=== PATIENT | female | born 1945 | race Caucasian/White ===

== ENCOUNTER 2017-10-16 00:46 | Observation (INO) | payer MEDICARE ==
[2017-10-15 13:36] LABS: INR 0.95
[~2017-10-16] VITALS: Ht 160 cm; Wt 55.3 kg
[2017-10-16] VITALS (16 sets, daily range): BP systolic 85–125; BP diastolic 42–66
[~2017-10-16 00:46] MED LIST: ASPI-1471 PO; ATOR10TA24 PO; FEXO1TAB63 PO; FLUT1DIS27 IH; NAPR-1043 PO; SERT-173 PO
--- NOTE | 2017-10-16 04:26 | LEVENE H&P ---
DATE OF ADMISSION: October 16, 2017 IDENTIFICATION/CHIEF COMPLAINT Elena is a 72-year-old woman with a chief complaint of right knee pain. HISTORY OF PRESENT ILLNESS Patient has a longstanding history of knee arthritis, progressively painful and debilitating, refractory to conservative care. Surgery is indicated to relieve symptoms after failure of nonoperative measures. PAST MEDICAL HISTORY Notable for reactive airway disease managed with inhalers. ALLERGIES No known drug allergies. CURRENT MEDICATIONS 1. Zoloft 100 mg p.o. daily. 2. ProAir inhaler q.a.m. 3. Advair inhaler once a day. 4. Aspiring 81 mg p.o. daily. 5. Vitamins. PAST SURGICAL HISTORY Notable for bilateral cataract surgery. FAMILY HISTORY Noncontributory. SOCIAL HISTORY Negative for tobacco use. She drinks alcohol socially about once a week, denies abuse. REVIEW OF SYSTEMS Negative. PHYSICAL EXAMINATION GENERAL: This is a well-developed, well-nourished female who appears stated age. HEENT: Normocephalic, atraumatic. NECK: Supple. LUNGS: Clear. HEART: Regular. ABDOMEN: Soft. ORTHOPEDIC EXAMINATION: Right knee is stiff at end range of motion. She is grossly stable. Extensor function is intact. Skin is in good condition. RADIOGRAPHIC DATA Radiographs demonstrate end-stage knee arthritis. ASSESSMENT Right knee end-stage degenerative joint disease, progressively painful and debilitating, refractory to conservative care. PLAN Per patient request, we are going to proceed with total knee arthroplasty. The nature of the procedure, risks, benefits, the anticipated rehabilitative course were reviewed. The risks of procedure include but are not limited to , major medical or anesthetic complication, infection, neurovascular injury, blood transfusion, stiffness, scarring, fracture, tendon rupture, instability, implant loosening, migration or failure, persistent or recurrent pain, need for additional surgery and other unforeseen. She understands and wishes to proceed. A signed permit is placed in the chart. No guarantees are given or implied. KAVON
[2017-10-16] MEDS ORDERED: PROPOFOL EMUL(*) 10MG/ML 20 ML 20 ML ONE (06:27)
[2017-10-16] MEDS ORDERED: ONDANSETRON 4 MG/2 ML VIAL ONE (06:27)
[2017-10-16] MEDS ORDERED: LIDOCAINE MPF 1% 5 ML VIAL ONE (06:27)
[2017-10-16] MEDS ORDERED: DEXAMETHASONE SOD 4 MG/ML VIAL ONE (06:27)
[2017-10-16] MEDS ORDERED: fentaNYL CITR 100 MCG/2 ML AMP ONE (06:28)
[2017-10-16] MEDS ORDERED: PREGABALIN 75 MG CAPSULE PO ONE (07:45)
[2017-10-16] MEDS ORDERED: ACETAMINOPHEN 500 MG TAB PO ONE (07:45)
[2017-10-16] MEDS ORDERED: ceFAZolin(*) 1 GM VIAL 1 GM in NS(*) 0.9% 100 ML ADDVANT BAG 100 ML IVPB ONE (07:45)
[2017-10-16] MEDS ORDERED: NORMOSOL R SOLN(*) 1000 ML BAG 1,000 ML IV PRN ×2 (07:45→09:25)
[2017-10-16] MEDS ORDERED: FAMOTIDINE 20 MG TAB PO ONE (07:45)
[2017-10-16] MEDS ORDERED: CELECOXIB 200 MG CAP PO ONE (07:45)
[2017-10-16] MEDS ORDERED: LIDOCAINE/SOD BICARB 8.4% SYR ID ONE (07:45)
[2017-10-16] MEDS ORDERED: MIDAZOLAM 2 MG/2 ML VIAL IVP PRN (07:45)
[2017-10-16] MEDS ORDERED: cloNIDine EPIDUR INJ 100MCG/ML 40 MCG, ROPIVACAINE 0.5% 20 ML VIAL 25 ML, EPINEPHrine H... INJ ONE (07:45)
[2017-10-16] MEDS ORDERED: TRANEXAMIC AC 1000 MG/10ML SDV 1,000 MG in DEXTROSE 5% 50 ML BAG 50 ML IV ONE (07:45)
[2017-10-16] MEDS ORDERED: NS 0.9% IRRIGATION 1000ML PLCT IR ONE (07:58)
[2017-10-16] MEDS ORDERED: LACTATED RINGER 3000 ML BAG IR ONE (07:58)
[2017-10-16] MEDS ORDERED: diphenhydrAMINE 50 MG/ML VIAL IVP PRN (09:25)
[2017-10-16] MEDS ORDERED: DIAZEPAM 5 MG TAB PO PRN (09:25)
[2017-10-16] MEDS ORDERED: diphenhydrAMINE 25 MG CAP PO PRN (09:25)
[2017-10-16] MEDS ORDERED: MAGNESIUM HYDROXIDE* 30ML UDCP PO PRN (09:25)
[2017-10-16] MEDS ORDERED: BENZOCAINE/MENTHOL 1 EACH LOZG PO PRN (09:25)
[2017-10-16] MEDS ORDERED: BISACODYL 10 MG SUPP PR PRN (09:25)
[2017-10-16] MEDS ORDERED: FLUSH 10 ML SYR IVP PRN (09:25)
[2017-10-16] MEDS ORDERED: ZOLPIDEM TARTRATE 5 MG TAB PO PRN (09:25)
[2017-10-16] MEDS ORDERED: ACETAMINOPHEN 325 MG TAB PO PRN (09:25)
[2017-10-16] MEDS ORDERED: PROMETHAZINE 25 MG/ML 1 ML AMP IVP PRN (09:25)
--- NOTE | 2017-10-16 09:51 | LEVENE TKA ---
EVENT DATE: October 16, 2017 SURGEON: Steve Coley MD ANESTHESIA: General plus spinal. SLACKLINE OPERATOR: Jacob Duarte PA-C PREOPERATIVE DIAGNOSIS Right knee degenerative joint disease (DJD). POSTOPERATIVE DIAGNOSIS Right knee degenerative joint disease (DJD). PROCEDURE PERFORMED Right total knee arthroplasty. ESTIMATED BLOOD LOSS Minimal. DRAINS None. SPECIMENS None. COMPLICATIONS None. TOURNIQUET TIME 39 minutes. IMPLANTS USED Nicol Triathlon knee system, a 4 right PS femur, a 4 standard tibial baseplate , a 33] mm universal symmetric polyethylene patella button and 11 mm PS tibial tray liner polyethylene x3. INDICATIONS The patient is 72-year-old woman with end-stage arthritis, intractable pain and disability refractory to conservative care. Surgery is indicated to relieve symptoms after failure of nonoperative measures. DESCRIPTION OF PROCEDURE The patient was taken to the operating room and placed supine on the operating table. A spinal block was administered by the anesthesiologist. General anesthesia was induced. Antibiotic and TXA were administered IV. The right lower extremity was prepped and draped in the usual sterile fashion for orthopedic surgery. The limb was exsanguinated with an Esmarch bandage. The tourniquet was inflated to 250 mmHg. A midline longitudinal incision was made and carried down through the skin and subcutaneous tissue to the extensor mechanism. A full-thickness flap was developed far enough medially to allow a medial parapatellar arthrotomy to be performed. The patella was everted. The knee was brought into a flexed position. The fat pad, anterior horns of the menisci and cruciate ligaments were debrided. A subperiosteal capsular release was performed circumferentially 1 cm around the upper portion of the plateau. A step drill was used to enter the distal femur. A 10-inch long alignment guide was used to engage the isthmus. Distal cut set for 6 degrees of valgus over the anatomic axis. A 10 mm resection block was pinned and cut was made with an oscillating saw. The AP sizing guide was applied to the distal femoral cut. Size 4 was optimal without risk of notching. 3 degrees of external rotation relative to the posterior condyle was dialed in. The four-in-one cutting block was applied. Anterior, posterior, posterior chamfer and anterior chamfer cuts were made respectively. A PS block was applied and centered mediolateral and the bone was resected for the box. The trial femur had nice [id number] fit. Attention was turned to tibial preparation. The extramedullary guide was applied and positioned for varus, valgus, posterior slope and rotation. This is set to resect 2 mm from the deficient lateral tibial plateau and set down a couple of millimeters to ensure an adequate cut. The block was pinned into position, extramedullary check was made and the cut was made with an oscillating saw. After osteophyte removal and removal of posterior recess bone gaps were balanced and symmetric with no further release required. The size 4 tibial baseplate provided optimal coverage without soft tissue overhang. This was inserted along with a trial liner and trial femur and the knee was brought to extension. The patella was taken from a starting thickness of 24 to a residual of 15 with a patellar clamp and an oscillating saw. A size 33 provided optimal bony coverage without soft tissue overhang. The lug holes were drilled. The patella tracts nicely with a no-touch technique. Final tibial preparation consisted of ensuring appropriate rotational and translational position of the tibial component. The Boss was reamed and the fin was punched. All bony surfaces were lavaged. A mix of polymethylmethacrylate was made and the components were cemented in a single stage. After the cement was fully polymerized, the tourniquet was deflated and hemostasis was assured. The wounds were copiously lavaged to remove all loose debris. The 11 PS tibial tray liner fills up the gap ideally and allows the knee to drop to full extension without hyperextension, providing optimal soft tissue tension stability. The tray was lavaged and dried and the actual liner was locked into the baseplate. The joint was reduced and the arthrotomy was closed in flexion with #2 Ethibond, subcutaneous tissue with 3-0 Vicryl and the skin with surgical cody. Xeroform was applied followed by a dry, sterile dressing and a compression wrap. The patient was awakened from the anesthesia and taken to the recovery room in stable condition, having tolerated the procedure well. Plan for postoperative care is standard TK protocol. KAVON
--- NOTE | 2017-10-16 10:42 | RADIOLOGY IMAGING REPORT ---
FACILITY: [facility] [place] PATIENT NAME: Elena Hernandez : 1945 MR: [id number] V: [id number] EXAM DATE: ORDERING PHYSICIAN: KIMBERLY SOLOMON TECHNOLOGIST: Location: [facility] Patient: Elena Hernandez : 1945 Visit/Account:[id number] Date of Sevice: 10/16/2017 Exam type: KNEE LIMITED RIGHT History: S/P TOTAL KNEE ARTHROPLASTY CHECK PLACEMENT Comparison: None. Findings: A single AP view only of the right knee was submitted demonstrating a right knee arthroplasty which a ppears in good anatomic alignment on this AP view. Soft tissue gas and skin cody project over the knee IMPRESSION: 1. As above Report Dictated By: Gladys Mejia MD at 10/16/2017 10:37 AM Report E-Signed By: Gladys Mejia MD at 10/16/2017 10:38 AM WSN:[id number]
--- NOTE | 2017-10-16 10:52 | Hospitalist Consultation ---
History of Present Illness Requesting Physician Dr. Coley Reason for Consult medical management Chief Complaint s/p right total knee replacement History of Present Illness She was admitted s/p right total knee replacement. It is reported the surgery went well and without complication. History Problems: (1) Depression Status: Chronic (2) Hyperlipidemia Status: Chronic (3) Asthma Status: Chronic Home Meds Reported Medications Fexofenadine Hcl/Pseudoephedr (BEN-D 24 HOUR TABLET) 1 Each Tabsr, 1 TAB PO QDAY 10/09/17 Atorvastatin Calcium (LIPITOR) 10 Mg Tablet, 1 TAB PO HS, TAB 10/09/17 Naproxen Sodium (ALEVE) 220 Mg Tablet, 220 MG PO TID Y for PAIN, TAB 10/09/17 Aspirin (ASPIR 81) 81 Mg Tablet.dr, 81 MG PO QDAY, TAB 10/09/17 Fluticasone/Salmeterol (ADVAIR 100-50 DISKUS) 1 Each Disk.w.dev, 2 PUFF IH BID 10/09/17 Sertraline Hcl (ZOLOFT) 100 Mg Tablet, 1 TAB PO QDAY, TAB 10/09/17 Allergies: Coded Allergies: No Known Drug Allergies (Unverified , 10/09/17) Patient History: FH: diabetes mellitus MOTHER, , Age:83 FHx: heart disease FATHER, , Age:80 Hx Smoking: Yes (SMOKED <1/2 PPD X 18 YRS. QUIT 1987.) When Quit Tobacco?: 1987 Caffeine Intake: Coffee, Tea Caffeine/Cups Per Day: 2 Hx Alcohol Use: Yes Hx Substance Use Disorder: No Social Drug Use: Never History of IV Drug Use: No Review of Systems All Systems Reviewed/Normal: Yes, Except as Noted Exam Vital Signs Vital Signs Date Time Temp Pulse Resp B/P (MAP) Pulse Ox O2 Delivery O2 Flow Rate FiO2 10/16/17 10:11 99 Nasal Cannula 1.0 10/16/17 10:11 97.6 69 16 125/58 (80) General Appearance: Alert, Awake, No Acute Distress, Afebrile Neuro: No Gross deficits Cardiovascular: Regular Rate and Rhythm Respiratory: No Respiratory Distress, Clear to Auscultation GI: Abd Soft and Non-Tender Psych: Alert & Oriented X3, Appropriate Mood & Affect Assessment and Plan Problems: (1) Status post total right knee replacement Status: Acute Assessment & Plan: Followed by Dr. Coley. She has no history of DVT or PE. She will be started on Aspirin 325mg daily for DVT prophylaxis. (2) Asthma Status: Chronic Assessment & Plan: She is on chronic treatment with Advair. She does not require oxygen at home. (3) Hyperlipidemia Status: Chronic Assessment & Plan: She is on chronic treatment with atorvastatin. (4) Depression Status: Chronic Assessment & Plan: She is on chronic treatment with sertraline. (5) Renal insufficiency Status: Acute Assessment & Plan: Creatinine prior to surgery was 1.57. We will recheck BMP in the morning. Venous Thromboembolism Antithrombotics Is Pt On Any Antithrombotics?: No Exam Sepsis Risk: No Definite Risk LEANN BRAUN AEROSPACE PHYSIOLOGICAL TECHNICIAN Oct 16, 2017 10:52
[2017-10-16] MEDS: APAP/HYDROCODONE 325/7.5 TAB PO PRN ×3 (11:10→20:57)
[2017-10-16] MEDS: ceFAZolin(*) 1 GM VIAL 1 GM in NS(*) 0.9% 100 ML ADDVANT BAG 100 ML IVPB SCH ×2 (14:45→23:24)
[2017-10-16] MEDS: SALMETEROL/FLUTIC 100/50 1 INH INH SCH (17:12)
[2017-10-16] MEDS: CELECOXIB 200 MG CAP PO SCH (17:18)
[2017-10-16] MEDS: ATORVASTATIN 10 MG TAB PO SCH (20:57)
[2017-10-17] VITALS (7 sets, daily range): BP systolic 90–104; BP diastolic 41–51; Ht 160 cm; Wt 55.3 kg
[2017-10-17] MEDS: APAP/HYDROCODONE 325/7.5 TAB PO PRN ×4 (03:10→17:43)
[2017-10-17] MEDS: SALMETEROL/FLUTIC 100/50 1 INH INH SCH ×2 (05:48→17:38)
[2017-10-17] MEDS: ceFAZolin(*) 1 GM VIAL 1 GM in NS(*) 0.9% 100 ML ADDVANT BAG 100 ML IVPB SCH (06:27)
[2017-10-17] MEDS ORDERED: NS(*) 0.9% 250 ML BAG 250 ML ONE (06:28)
[2017-10-17] MEDS: CELECOXIB 200 MG CAP PO SCH ×2 (08:10→16:22)
--- NOTE | 2017-10-17 09:13 | Hospitalist Progress Note ---
Subjective Progress Notes Subjective She had some episodes of confusion last night. This is now resolved. She has no complaints this morning. Patient Complains of: Cardiovascular: No: Chest Pain Respiratory: No: Shortness of Breath Physical Exam Vital Signs Date Time Temp Pulse Resp B/P (MAP) Pulse Ox O2 Delivery O2 Flow Rate FiO2 10/17/17 07:54 96 10/17/17 07:52 98.8 61 12 101/51 (68) Nasal Cannula 0.5 Intake and Output 10/18/17 06:59 Intake Total 110 ml Balance 110 ml IV Total 110 ml General Appearance: Alert, Awake, No Acute Distress, Afebrile Neuro: No Gross deficits Cardiovascular: Regular Rate and Rhythm Respiratory: No Respiratory Distress, Clear to Auscultation Psych: Alert & Oriented X3, Appropriate Mood & Affect Result Diagram: 10/17/17 0510 Assessment and Plan Problems: (1) Status post total right knee replacement Status: Acute Assessment & Plan: Followed by Dr. Coley. She has no history of DVT or PE. She will be started on Aspirin 325mg daily for DVT prophylaxis. (2) Asthma Status: Chronic Assessment & Plan: She is on chronic treatment with Advair. She does not require oxygen at home. (3) Hyperlipidemia Status: Chronic Assessment & Plan: She is on chronic treatment with atorvastatin. (4) Depression Status: Chronic Assessment & Plan: She is on chronic treatment with sertraline. (5) Renal insufficiency Status: Acute Assessment & Plan: Creatinine prior to surgery was 1.57. Creatinine 1.1. Exam Sepsis Risk: No Definite Risk LEANN BRAUNP Oct 17, 2017 09:12
[2017-10-17] MEDS: SERTRALINE HCL 50 MG TAB PO SCH (10:09)
[2017-10-17] MEDS: ASPIRIN 325 MG TAB PO SCH (10:09)
[2017-10-17] MEDS: FEXOFENADINE HCL 60 MG TAB PO SCH (10:09)
[2017-10-17] MEDS: ATORVASTATIN 10 MG TAB PO SCH (20:50)
[2017-10-18 00:19] VITALS: BP 106/53
[2017-10-18 02:49] VITALS: BP 121/60
[2017-10-18] MEDS: SALMETEROL/FLUTIC 100/50 1 INH INH SCH (05:50)
[2017-10-18] MEDS: APAP/HYDROCODONE 325/7.5 TAB PO PRN ×3 (06:04→15:29)
[2017-10-18 07:06] VITALS: BP 114/53
[2017-10-18] MEDS: FEXOFENADINE HCL 60 MG TAB PO SCH (08:35)
[2017-10-18] MEDS: ASPIRIN 325 MG TAB PO SCH (08:35)
[2017-10-18] MEDS: CELECOXIB 200 MG CAP PO SCH (08:35)
[2017-10-18] MEDS: SERTRALINE HCL 50 MG TAB PO SCH (08:36)
[2017-10-18] MEDS ORDERED: ASPI-757 PO (11:03)
--- NOTE | 2017-10-18 11:05 | Hospitalist Progress Note ---
Subjective Progress Notes Subjective She has no complaints this morning. She had no acute events overnight. Patient Complains of: Cardiovascular: No: Chest Pain Respiratory: No: Shortness of Breath Physical Exam Vital Signs Date Time Temp Pulse Resp B/P (MAP) Pulse Ox O2 Delivery O2 Flow Rate FiO2 10/18/17 07:06 90 10/18/17 07:06 98.5 71 20 114/53 (73) Nasal Cannula 0.5 Intake and Output 10/19/17 00:59 Intake Total 150 ml Balance 150 ml Intake Oral 150 ml # Voids 2 General Appearance: Alert, Awake, No Acute Distress, Afebrile Neuro: No Gross deficits Cardiovascular: Regular Rate and Rhythm Respiratory: No Respiratory Distress, Clear to Auscultation GI: Soft and Non-Tender Psych: Alert & Oriented X3, Appropriate Mood & Affect Result Diagram: 10/17/17 0510 Assessment and Plan Problems: (1) Status post total right knee replacement Status: Acute Assessment & Plan: Followed by Dr. Coley. She has no history of DVT or PE. She will be started on Aspirin 325mg daily for DVT prophylaxis. She plans to go home with home health. (2) Asthma Status: Chronic Assessment & Plan: She is on chronic treatment with Advair. She does not require oxygen at home. (3) Hyperlipidemia Status: Chronic Assessment & Plan: She is on chronic treatment with atorvastatin. (4) Depression Status: Chronic Assessment & Plan: She is on chronic treatment with sertraline. (5) Renal insufficiency Status: Acute Assessment & Plan: Creatinine prior to surgery was 1.57. Creatinine 1.1 post surgery. Exam Sepsis Risk: No Definite Risk LEANN BRAUN [employer] Oct 18, 2017 11:05
[2017-10-18 11:23] VITALS: BP 101/51
[2017-10-18 14:56] VITALS: BP 110/55
--- NOTE | 2017-10-31 10:25 | DISCHARGE SUMMARY ---
ADMISSION DATE: October 16, 2017 DATE OF DISCHARGE: October 18, 2017 REASON FOR ADMISSION The patient with painful right knee arthritis, admitted to the hospital for knee replacement surgery. HOSPITAL COURSE The patient was taken to the operating room on the day of admission, undergoes uncomplicated right total knee arthroplasty. Postoperative course unremarkable. She was maintained on IV antibiotics for 24 hours. She had DVT prophylaxis with aspirin and ROGERIO's. She makes good progress with Therapy administered per protocol. At the time of discharge she was cleared by Therapy for safety and mobility. DISPOSITION Discharged to home. Follow up with Dr. Coley in one week. DISCHARGE MEDICATIONS Include preop home meds at the usual dose: 1. Aspirin 325 mg p.o. q day times one month for DVT prophylaxis. 2. Hydrocodone for pain. CONDITION ON DISCHARGE Stable. DISCHARGE INSTRUCTIONS 1. Diet is ad milena. 2. CPM 4 hours per day, increase motion as tolerated. 3. Outpatient PT. 4. Daily, dry sterile dressing change. 5. Okay to shower. No submerging of the wound. 6. Call immediately for fevers, chills, wound problems, uncontrolled pain, or any other concerns. KAVON
== END 2017-10-18 16:10 | disposition home or self-care (01) ==
LOC: OR 00:46 → MED 10:00
PROVIDERS: ADMIT Orthopaedic Surgery; ATTEND Orthopaedic Surgery
DX: M17.11 Unilateral primary osteoarthritis, right knee (principal); J45.909 Unspecified asthma, uncomplicated; E78.5 Hyperlipidemia, unspecified; F32.9 Major depressive disorder, single episode, unspecified; N28.9 Disorder of kidney and ureter, unspecified
CPT/HCPCS: 27447; 36415; 73560; 85610; 86850; 86900; 86901; 94640; 97116; 97161; 97530; A9270; C1713; C1776; G0378; J0171; J0690; J0735; J1100; J1885; J2001; J2250; J2405; J2704; J2795; J3010; J3535; J7050; J7060; 82310; 82374; 82435; 82565; 82947; 84132; 84295; 84520